=== PATIENT | male | born 1990 | race Caucasian/White ===

== ENCOUNTER 2021-12-22 17:48 | Emergency (ER) | payer SELFPAY ==
[~2021-12-22] VITALS: Ht 185.4 cm; Wt 90.0 kg
[2021-12-22 17:55] VITALS: BP 146/89
[2021-12-22] MEDS ORDERED: PREG150C MT (18:38)
== END 2021-12-22 19:04 | disposition home or self-care (01) ==
LOC: ER 17:48
DX: Z76.0 Encounter for issue of repeat prescription (principal); Z87.828 Personal history of other (healed) physical injury and trauma
CPT/HCPCS: 99283